=== PATIENT | male | born 1990 | race Caucasian/White ===

== ENCOUNTER 2017-12-15 19:03 | Emergency (ER) | payer BC, OTHER ==
[2017-12-15 19:36] VITALS: BP 131/79
--- NOTE | 2017-12-15 19:58 | UC ---
Throat Pain/Nasal Giovanni HPI - HPI Summary HPI Summary: 27 yo male with sore throat x 3 days fever mild CRUZ no myalgias girl friend dxed with mono 1 month ago - History of Current Complaint Chief Complaint: UCRespiratory Stated Complaint: SORE THROAT Time Seen by Provider: 12/15/17 19:34 Hx Obtained From: Patient Onset/Duration: Gradual Onset, Lasting Days Severity: Moderate Pain Intensity: 7 Pain Scale Used: 0-10 Numeric Associated Signs & Symptoms: Positive: Fever - Allergies/Home Medications Allergies/Adverse Reactions: Allergies Allergy/AdvReac Type Severity Reaction Status Date / Time No Known Allergies Allergy Verified 12/15/17 19:29 Home Medications: Home Medications Acetaminophen TAB* [Tylenol TAB*] 650 mg PO Q4H PRN 12/15/17 [History Confirmed 12/15/17] NK [No Home Medications Reported] 12/15/17 [History Confirmed 12/15/17] PMH/Surg Hx/FS Hx/Imm Hx Previously Healthy: Yes - Surgical History Surgical History: Yes Surgery Procedure, Year, and Place: WISDOM TEETH EXTRACTIONS - Family History Known Family History: Positive: Hypertension Negative: Cardiac Disease, Diabetes - Social History Alcohol Use: Weekly Substance Use Type: None Smoking Status (MU): Never Smoked Tobacco Review of Systems Constitutional: Fever Skin: Negative Eyes: Negative ENT: Sore Throat Respiratory: Negative Cardiovascular: Negative Gastrointestinal: Negative Genitourinary: Negative Motor: Negative Neurovascular: Negative Musculoskeletal: Negative Neurological: Negative Psychological: Negative Is Patient Immunocompromised?: No All Other Systems Reviewed And Are Negative: Yes Physical Exam Triage Information Reviewed: Yes Appearance: Well-Appearing, No Pain Distress, Well-Nourished Vital Signs: Initial Vital Signs Temp 98.5 F 12/15/17 19:30 Pulse 108 12/15/17 19:30 Resp 18 12/15/17 19:30 BP 131/79 12/15/17 19:30 Pulse Ox 98 12/15/17 19:30 Vital Signs Reviewed: Yes Eyes: Positive: Conjunctiva Clear ENT: Positive: Pharyngeal erythema, Tonsillar swelling, Tonsillar exudate, Uvula midline. Negative: Trismus, Muffled voice Neck: Positive: Supple, Nontender, Enlarged Nodes @ - ant/post cerv Respiratory: Positive: Lungs clear, Normal breath sounds, No respiratory distress, No accessory muscle use Cardiovascular: Positive: RRR, No Murmur Musculoskeletal: Positive: ROM Intact, No Edema Neurological: Positive: Alert Psychological Exam: Normal Skin Exam: Normal Diagnostics - Laboratory Diagnostic Studies Completed/Ordered: strep (-) Throat Pain/Nasal Course/Dx - Differential Dx/Diagnosis Provider Diagnoses: tonsillitis. suspect mono Discharge - Sign-Out/Discharge Documenting (check all that apply): Discharge/Admit/Transfer - Discharge Plan Condition: Stable Disposition: HOME Patient Education Materials: Mononucleosis (ED) Referrals: Tyrell Mancera MD [Primary Care Provider] - 5 Days Additional Instructions: strep (-) recheck for new or worsening symptoms too early to test for mono I suspect this is mono tylenol or advil for pain or fever - Billing Disposition and Condition Condition: STABLE Disposition: HOME
== END 2017-12-15 20:04 | disposition home or self-care (01) ==
LOC: UCCORT 19:03
DX: J03.90 Acute tonsillitis, unspecified (principal)
CPT/HCPCS: 87651; 99201; G0463